=== PATIENT | male | born 1975 | race Caucasian/White ===

== ENCOUNTER 2021-06-12 08:10 | Outpatient (CLI) | payer OTHER ==
[2021-06-12 11:07] LABS: Hemoglobin 15.8 g/dL (13.5-17.5); Mean Corpuscular HGB CONC 34.6 g/dL (32.0-36.0); Mean Corpuscular Hemoglobin 30.6 pg (27.0-33.0); Mean Corpuscular Volume 88.2 fl (81.2-95.1); Mean Platelet Volume 13.2 fl (7.4-10.4); Platelet Count 189 10x3/uL (150-450); RBC Distribution Width 13.2 % (11.5-14.5); Red Blood Cell (RBC) Count 5.17 10x6/uL (4.32-5.72); White Blood Cell (WBC) Count 7.7 10x3/uL (3.5-10.5)
[2021-06-12 11:12] LABS: Anion Gap 14 mmol/L (10-20); BUN (Urea Nitrogen) 13 mg/dL (8.9-20.6); Calc. Creatinine Clearance 0 mL/min (70-130); Calcium 9.1 mg/dL (7.8-10.44); Carbon Dioxide 24 mmol/L (22-29); Chloride 108 mmol/L (98-107); Glucose 91 mg/dL (70-105); Potassium 3.9 mmol/L (3.5-5.1); Sodium 142 mmol/L (136-145)
[2021-06-12 11:13] LABS: INR-International Normal Ratio 0.9; PTT 24.8 sec (22.0-33.0); Prothrombin Time 10.4 sec (9.5-12.1)
[2021-06-12 17:20] LABS: SARS-CoV-2 PCR by NAA Not Detected (NotDetected)
== END 2021-06-12 08:11 | disposition home or self-care (01) ==
LOC: LABBT 08:10
PROVIDERS: ATTEND Internal Medicine Cardiovascular Disease
DX: Z01.812 Encounter for preprocedural laboratory examination (principal); Z20.822 Contact with and (suspected) exposure to COVID-19
CPT/HCPCS: 80048; 85027; 85610; 85730; U0003; U0005

== ENCOUNTER 2021-06-17 06:17 | Day surgery (SDC) | payer OTHER ==
[2021-06-13 11:44] VITALS: BMI 33.0
[2021-06-17] MEDS ORDERED: Heparin 10,000 UNITS/ 10 ML VIAL ONE (06:35)
[2021-06-17] MEDS ORDERED: Heparin 25,000 units/D5W 0 ML ONE (06:35)
[2021-06-17] MEDS ORDERED: Lidocaine 1% (PF) 30 ML VIAL ONE (06:50)
[2021-06-17] MEDS ORDERED: Sodium Chloride 0.9% 20 ML ONE (06:52)
[2021-06-17] MEDS ORDERED: Isoproterenol 0.2 MG/1 ML AMP ONE (07:22)
[2021-06-17] MEDS ORDERED: Fentanyl 100 MCG/2 ML VIAL ONE (07:22)
[2021-06-17] MEDS ORDERED: Midazolam HCl 2 mg/2 ml Vial ONE (07:22)
[2021-06-17] MEDS ORDERED: PROPOFOL 20 ML ONE (08:54)
== END 2021-06-17 14:00 | disposition home or self-care (01) ==
LOC: CCL 06:17
PROVIDERS: ATTEND Internal Medicine Cardiovascular Disease
PROC: 4A0234Z Measurement of Cardiac Electrical Activity, Percutaneous Approach (ICD-10-PCS; principal; 2021-06-17)
PROC: 02583ZZ Destruction of Conduction Mechanism, Percutaneous Approach (ICD-10-PCS; principal; 2021-06-17)
PROC: 4A023FZ Measurement of Cardiac Rhythm, Percutaneous Approach (ICD-10-PCS; principal; 2021-06-17)
PROC: 02K83ZZ Map Conduction Mechanism, Percutaneous Approach (ICD-10-PCS; principal; 2021-06-17)
DX: I47.1 Supraventricular tachycardia (principal); G47.30 Sleep apnea, unspecified; Z86.16 Personal history of COVID-19; Z88.0 Allergy status to penicillin
CPT/HCPCS: 93005; 93613; 93623; 93653; C1730; C1732; J1644; J2001; J2250; J2704; J3010

== ENCOUNTER 2023-12-09 14:27 | Outpatient (CLI) | payer OTHER | END 2023-12-09 14:28 | disposition home or self-care (01) | LOC: LABBT 14:27 | PROVIDERS: ATTEND Urology | DX: Z01.812 Encounter for preprocedural laboratory examination (principal); N20.1 Calculus of ureter | CPT/HCPCS: 87086 ==

== ENCOUNTER 2023-12-14 06:14 | Day surgery (SDC) | payer OTHER ==
[2023-12-09 14:52] VITALS: BMI 35.9
[2023-12-14] MEDS ORDERED: Dexamethasone 20 MG/5 ML VIAL ONE (06:37)
[2023-12-14] MEDS ORDERED: ePHEDrine Sulfate 50 MG/10 ML VIAL ONE (06:37)
[2023-12-14] MEDS ORDERED: SUGAMMADEX SODIUM 200 MG/2 ML VIAL ONE (06:37)
[2023-12-14] MEDS ORDERED: PROPOFOL 20 ML ONE (06:37)
[2023-12-14] MEDS ORDERED: Rocuronium Bromide 10 MG/ML (10ML VIAL) ONE (06:37)
[2023-12-14] MEDS ORDERED: fentaNYL PF 100 MCG/2 ML SYRINGE ONE (06:37)
[2023-12-14] MEDS ORDERED: Lidocaine 2% PF 100 mg/5 ml Syringe ONE (06:37)
[2023-12-14] MEDS ORDERED: Ondansetron PF 4 MG/2 ML Vial ONE (06:37)
[2023-12-14] MEDS ORDERED: Midazolam HCl 2 mg/2 ml Vial ONE (07:17)
[2023-12-14] MEDS ORDERED: Lidocaine 1% MPF 2 ML VIAL ONE (07:17)
[2023-12-14] MEDS ORDERED: LevoFLOXacin D5W 500 mg (100 mL) BAG ONE (07:18)
[2023-12-14] MEDS ORDERED: Iopamidol 30 ML ONE (07:28)
[2023-12-14] MEDS ORDERED: Ketorolac Tromethamine 30 MG (1 mL) VIAL ONE (09:02)
[2023-12-14] MEDS ORDERED: fentaNYL 50 mcg/mL 1 mL Vial ONE (09:38)
== END 2023-12-14 11:15 | disposition home or self-care (01) ==
LOC: SDC 06:14
PROVIDERS: ATTEND Urology
PROC: 0TC78ZZ Extirpation of Matter from Left Ureter, Via Natural or Artificial Opening Endoscopic (ICD-10-PCS; principal; 2023-12-14)
PROC: 0T778DZ Dilation of Left Ureter with Intraluminal Device, Via Natural or Artificial Opening Endoscopic (ICD-10-PCS; principal; 2023-12-14)
DX: N20.2 Calculus of kidney with calculus of ureter (principal); G47.33 Obstructive sleep apnea (adult) (pediatric); M10.9 Gout, unspecified; F32.A Depression, unspecified; Z88.0 Allergy status to penicillin; Z98.890 Other specified postprocedural states
CPT/HCPCS: 74420; 82365; 88300; C1747; C1769; C1874; J1100; J1885; J1956; J2001; J2250; J2405; J2704; J3010; Q9967